=== PATIENT | male | born 1960 | race Caucasian/White ===

== ENCOUNTER 2018-03-16 11:16 | Observation (INO) ==
[2018-03-16 12:18] LABS: Baso # (Auto) 0.1 th/mm3 (0.0-0.2); Baso % (Auto) 1.8 % (0.0-2.0); Eos # (Auto) 0.2 th/mm3 (0.0-0.4); Eos % (Auto) 2.2 % (0.0-4.0); Hematocrit 45.4 % (39.0-51.0); Hemoglobin 15.3 gm/dL (13.0-17.0); Lymph # (Auto) 1.5 th/mm3 (1.0-4.8); Lymph % (Auto) 19.8 % (9.0-44.0); Mean Corpuscular HGB Conc 33.7 % (32.0-36.0); Mean Corpuscular Hemoglobin 28.4 pg (27.0-34.0); Mean Corpuscular Volume 84.3 fL (80.0-100.0); Mean Platelet Volume 10.1 fL (7.0-11.0); Mono # (Auto) 0.5 th/mm3 (0.0-0.9); Mono % (Auto) 6.9 % (0.0-8.0); Neut # (Auto) 5.2 th/mm3 (1.8-7.7); Neut % (Auto) 69.3 % (16.0-70.0); Platelet Count 257 th/mm3 (150-450); Red Blood Count 5.38 mil/mm3 (4.50-5.90); Red Cell Distribution Width 13.7 % (11.6-17.2); White Blood Count 7.4 th/mm3 (4.0-11.0)
--- NOTE | 2018-03-16 12:22 | XR ---
EXAM DATE: 03/16/2018 12:16 PM EDT AGE/SEX: 57 years / Male INDICATIONS: . Chest pain. Patient complains of 2 episodes of dizziness and nausea. CLINICAL DATA: This is the patient's initial encounter. Patient reports that signs and symptoms have been present for 2 days and indicates a pain score of 0/10. MEDICAL/SURGICAL HISTORY: Hypertension. None. COMPARISON: No prior exams available for comparison. FINDINGS: PA and lateral views of the chest demonstrate the lungs to be symmetrically aerated without evidence of mass, infiltrate or effusion. The cardiomediastinal contours are unremarkable. Spurs are seen in t he thoracic spine. CONCLUSION: No acute cardiopulmonary process. Electronically signed by: Josef Vanegas MD 03/16/2018 12:21 PM EDT
[2018-03-16 12:29] LABS: Activated Partial Thrombo Time 25.5 sec (24.3-30.1); Prothrombin Time 10.5 sec (9.8-11.6)
[2018-03-16 12:34] LABS: Calcium 9.7 mg/dL (8.5-10.1); Carbon Dioxide 27.5 meq/L (21.0-32.0); Potassium 4.4 meq/L (3.5-5.1)
[2018-03-16 12:39] LABS: Troponin I 0.03 ng/mL (0.02-0.05)
[2018-03-16] MEDS ORDERED: Aspirin 325 MG Tablet PO ONE (15:48)
--- NOTE | 2018-03-16 16:05 | ED ---
HPI General Chief Complaint: Chest Pain Stated Complaint: Chest Pains Time Seen by Provider: 03/16/18 15:47 Source: patient Mode of arrival: ambulatory History of Present Illness HPI narrative: 57-year-old male presents for 2 day history of chest pain. Chest pain is located in midsternal region and does not radiate. He describes it as a "pressure-like" sensation. He also reports assocaited lightheadness, dizziness and nausea. Denies any fever, chills, SOB, palpitations, fevers, or other symptoms. He states that the chest pains are currently a 3 out of 10. Complete Quality Measures for STEMI Alert Patients Related Data Allergies Allergy/AdvReac Type Severity Reaction Status Date / Time No Known Allergies Allergy Unverified 03/16/18 11:39 Review of Systems ROS: all other systems reviewed are negative [facility] Medical History Medical History Hypertension (Acute) Rheumatoid arthritis (Acute) Surgical History Surgical History H/O knee surgery (Acute) H/O sinus surgery (Acute) Hx of tonsillectomy (Acute) Social History Social History Second Hand Smoke Exposure: No Smoking Status: Never smoker How Often Do You Have a Drink Containing Alcohol: Monthly or less Recent Travel in [facility] within the Last 8 Weeks: No Recent Out of Country Travel within the Last 8 Weeks: No Immunization History Tetanus Immunization: Unsure Hx Influenza Vaccine This Season: No Exam Narrative Exam Narrative: GENERAL: Well-developed middle-age male patient currently in mild distress. Awake and oriented 3. SKIN: Focused skin assessment warm/dry. HEAD: Atraumatic. Normocephalic. EYES: Pupils equal and round. No scleral icterus. No injection or drainage. ENT: No nasal bleeding or discharge. Mucous membranes pink and moist. NECK: Trachea midline. No JVD. Supple. CARDIOVASCULAR: Regular rate and rhythm. No murmur appreciated. Pulses are present and equal bilaterally. RESPIRATORY: No accessory muscle use. Clear to auscultation. Breath sounds equal bilaterally. GASTROINTESTINAL: Abdomen soft, non-tender, nondistended. Hepatic and splenic margins not palpable. MUSCULOSKELETAL: No obvious deformities. No clubbing. No cyanosis. No edema. NEUROLOGICAL: Awake and alert. No obvious cranial nerve deficits. Motor grossly within normal limits. Normal speech. PSYCHIATRIC: Appropriate mood and affect; insight and judgment normal. Course Initial Documented Vital Signs Temperature 98.1 F 03/16/18 11:33 Pulse Rate 68 03/16/18 11:33 Respiratory Rate 18 03/16/18 11:33 Blood Pressure 187/99 H 03/16/18 11:33 Pulse Oximetry 98 03/16/18 11:33 Last Documented Vital Signs Temperature 98.1 F 03/16/18 11:33 Pulse Rate 62 03/16/18 16:23 Respiratory Rate 18 03/16/18 16:23 Blood Pressure 175/84 H 03/16/18 16:23 Pulse Oximetry 96 03/16/18 16:19 Medical Decision Making MDM Narrative Medical decision making narrative: EKG did not show significant dysrhythmias or ST changes. Cardiac enzymes are negative. Chest x-ray is unremarkable. At this point, I am concerned about patient's cardiac status, apparently he has several members of the family with early heart disease at around his age. My plan would be to admit him to chest pain center for further evaluation. Medical Screen Exam Complete: Yes Emergency Medical Condition: Yes Differential Diagnosis Differential Diagnosis: ACS versus dysrhythmias versus anxiety attack versus pneumonia Lab Data Lab results reviewed: Yes I reviewed the patient's lab results. Result diagrams: 03/16/18 11:54 03/16/18 11:54 Lab Results 03/16/18 03/16/18 03/16/18 Range/Units 11:54 11:54 11:54 WBC 7.4 (4.0-11.0) th/mm3 RBC 5.38 (4.50-5.90) mil/mm3 Hgb 15.3 (13.0-17.0) gm/dL Hct 45.4 (39.0-51.0) % MCV 84.3 (80.0-100.0) fL MCH 28.4 (27.0-34.0) pg MCHC 33.7 (32.0-36.0) % RDW 13.7 (11.6-17.2) % Plt Count 257 (150-450) th/mm3 MPV 10.1 (7.0-11.0) fL Neut % (Auto) 69.3 (16.0-70.0) % Lymph % (Auto) 19.8 (9.0-44.0) % [place] % (Auto) 6.9 (0.0-8.0) % Eos % (Auto) 2.2 (0.0-4.0) % Baso % (Auto) 1.8 (0.0-2.0) % Neut # (Auto) 5.2 (1.8-7.7) th/mm3 Lymph # (Auto) 1.5 (1.0-4.8) th/mm3 [place] # (Auto) 0.5 (0.0-0.9) th/mm3 Eos # (Auto) 0.2 (0.0-0.4) th/mm3 Baso # (Auto) 0.1 (0.0-0.2) th/mm3 WBC Differential . Differential Comment Auto diff final PT 10.5 (9.8-11.6) sec INR 1.0 Ratio APTT 25.5 (24.3-30.1) sec Sodium 140 (136-145) meq/L Potassium 4.4 (3.5-5.1) meq/L Chloride 104 (98-107) meq/L Carbon Dioxide 27.5 (21.0-32.0) meq/L Anion Gap 9 (5-15) meq/L BUN 21 H (7-18) mg/dL Creatinine 1.14 (0.60-1.30) mg/dL Estimated GFR 66 L (>89) mL/min Random Glucose 131 H (74-106) mg/dL Calcium 9.7 (8.5-10.1) mg/dL Troponin I 0.03 (0.02-0.05) ng/mL Imaging Data Attestation: I personally reviewed and interpreted this imaging study as follows : Radiologist's impression: Chest X-Ray 03/16/18 11:40 CONCLUSION: No acute cardiopulmonary process. ECG Data Prior ECG tracings: available for review Interpretation: EKG shows normal sinus rhythm at a rate of 70 bpm with no signs of acute ST elevations or depressions. Discharge Plan Discharge Disposition Patient Disposition: 30 Still Patient Discharge Condition Condition: Stable Discharge Details Anticipated Discharge Date: 03/16/18 Diagnosis: Atypical chest pain Physicians Team ED Provider: Bravo Muniz Primary Care Provider: Seth Grigsby Attending Provider: Meagan Rios Discharge Interventions Interventions: Vital Signs Last Done: 03/16/18 16:23 Status ED Status: Admitted Observation Patient
[2018-03-16 19:46] LABS: Troponin I 0.02 ng/mL (0.02-0.05)
--- NOTE | 2018-03-16 19:57 | CT ---
EXAM DATE: 03/16/2018 7:52 PM EDT AGE/SEX: 57 years / Male INDICATIONS: Chest pressure, dizziness and diaphoresis; rule out pulmonary embolus. CLINICAL DATA: This is the patient's initial encounter. Patient reports that signs and symptoms have been present for 1 day and indicates a pain score of 7/10. MEDICAL/SURGICAL HISTORY: Hypertension. None. RADIATION DOSE: 23.18 CTDI (mGy) COMPARISON: No prior exams available for comparison. TECHNIQUE: Volumetric scanning was performed using a multi-row detector CT scanner during bolus infu wilmar of 75 ml Omnipaque 350 (iohexol) nonionic water-soluble contrast as a single exam dose. The malissa a was post processed with a variety of visualization algorithms including full volume maximum intensi ty projection and sliding thin slab reformation. Using automated exposure control and adjustment of t he mA and/or kV according to patient size, radiation dose was kept as low as reasonably achievable to obtain optimal diagnostic quality images. DICOM format image data is available electronically for r eview and comparison. FINDINGS: Pulmonary Arteries: No filling defects are seen in the pulmonary arteries out to the subsegmental ve ssels. The left and right pulmonary arteries are normal in diameter. Lung: No infiltrates seen. Effusion: None. Mediastinum: No evidence of mediastinal or hilar adenopathy. Other: The axilla is unremarkable. CONCLUSION: 1. The study is negative for pulmonary embolism. Electronically signed by: Veto Paredes MD 03/16/2018 7:55 PM EDT
--- NOTE | 2018-03-17 08:38 | P.HPCA ---
History of Present Illness Primary Care Physician: Seth Grigsby DO Chief Complaint: Chest pressure History of Present Illness: 57 year old male with history of RA and hypertension presents to ER for further evaluation pressure, dizziness, and nausea. Onset 11 AM. Location substernal characterizes pressure with associated dizziness and nausea. Denied vomiting, dyspnea, or diaphoresis. Dizziness improved after a few hours reporting chest pressure "never went away." Monday morning woke up feeling fine. While drinking coffee dizziness and nausea returned still noticing sternal chest pressure. Duration dizziness 2 hours. Describes "the world to be spinning." Decided to come the ER for further evaluation as he has a planned trip to [place] this evening. No known coronary artery disease, diabetes, or hyperlipidemia. No recent illness or injury. Continues to have mild chest pressure, dizziness has resolved. Lifelong non-smoker. Reports early onset cardiac disease in mother, "heart problems in her 30s," CABG in her 40s. Past cardiac testing 06/15/14 exercise cardiac testing, Jamie protocol ambulated 9 minutes, no evidence of ischemia. - Diagnosis (1) Atypical chest pain (2) Rheumatoid arthritis (3) Hypertension (4) Dizziness, nonspecific Review of Systems All other systems reviewed negative except as stated in HPI PMFSH - History History Provided By: Patient - Medical History Medical History: Medical History (Last Updated 03/17/18 @ 12:18 by APOLINAR Oscar) Bilateral varicoceles Depression Hypertension Rheumatoid arthritis - Surgical History Surgical History: Surgical History (Last Updated 03/17/18 @ 12:18 by APOLINAR Oscar) H/O knee surgery H/O sinus surgery Hx of tonsillectomy - Tobacco History Second Hand Smoke Exposure: No Smoking Status: Never smoker - Alcohol History How Often Do You Have a Drink Containing Alcohol: Monthly or less - Substance Use History Substance History: No History of Abuse - Travel History History of Recent Travel: No Recent Travel in the [place] Within the Last 8 Weeks: No Recent Travel Out of the Country Within the Last 8 Weeks: No - Immunization History Tetanus Immunization: Unsure Hx Influenza Vaccine This Season: No Medications and Allergies Active Medications: Active Medications Acetaminophen (Tylenol) 500 mg PO Q4H PRN PRN Reason: HEADACHE Nitroglycerin (Nitrostat Sl) 0.4 mg SL Q5M PRN PRN Reason: CHEST PAIN Ondansetron HCl (Zofran Inj) 4 mg IV.PUSH Q6H PRN PRN Reason: NAUSEA Sodium Chloride (Ns Flush) 2 ml IV.FLUSH BID KI Last Admin: 03/16/18 20:55 Dose: 2 ml Sodium Chloride (Ns Flush) 2 ml IV.FLUSH PRN PRN PRN Reason: FLUSH AFTER USING IV ACCESS Allergies Allergy/AdvReac Type Severity Reaction Status Date / Time No Known Allergies Allergy Unverified 03/16/18 11:39 Home Medications Medication Instructions Recorded Confirmed Type Cymbalta 03/16/18 History losartan 03/16/18 History Exam Vital signs: Vital Signs 03/16/18 11:33 03/16/18 16:19 03/16/18 16:23 Temperature 98.1 F Pulse Rate 68 67 62 Respiratory Rate 18 19 18 Blood Pressure 187/99 H 166/98 H 175/84 H Pulse Oximetry 98 96 03/16/18 17:32 03/16/18 20:00 03/17/18 00:00 Temperature 98.2 F 98.4 F Pulse Rate 70 76 70 Respiratory Rate 20 16 16 Blood Pressure 131/76 116/70 117/72 Pulse Oximetry 99 94 L 95 03/17/18 04:00 03/17/18 07:12 03/17/18 08:00 Temperature 98.4 F 97.5 F L Pulse Rate 72 65 70 Respiratory Rate 16 16 Blood Pressure 125/61 125/69 Pulse Oximetry 95 92 L Intake & Output 03/16/18 03/17/18 03/17/18 18:59 06:59 18:59 Weight 99.79 kg 99.79 kg Other: Weight On Admission 99.79 kg Narrative: GENERAL: Alert WN, WD, NAD, pleasant, obese male, easily awakens from sleep HEAD: NC, AT NECK: Supple, no masses, trachea midline CV: RRR, without murmur, rub, gallop, no JVD, S1-S2 no S3-S4. No carotid bruits. Chest wall nontender to palpation. RESP: Clear lungs throughout bilateral, no crackles, wheeze, rhonchi, symmetrical chest rise, nonlabored, able to speak in full sentences ABD: Soft, NT, ND, no masses, positive bowel tones EXT: Pulses +2x4, +1 pitting bilateral dependent lower extremity edema MS: Normal tone x4 extremities, nontender, no obvious deformities, full range of motion NEURO: CN II through CN XII grossly intact, motor strength 5/5 PSYCH: A+O x3, pleasant affect, appropriate speech, mood, insight and judgment SKIN: Normal turgor, normal texture, no lesions, no rashes, brisk cap refill, even hair distribution Results 03/16/18 11:54 03/16/18 11:54 Cardiac Enzymes 03/16/18 03/16/18 03/16/18 Range/Units 11:54 16:00 18:45 Troponin I 0.03 0.03 0.02 (0.02-0.05) ng/mL Coagulation 03/16/18 Range/Units 11:54 PT 10.5 (9.8-11.6) sec APTT 25.5 (24.3-30.1) sec CBC 03/16/18 Range/Units 11:54 WBC 7.4 (4.0-11.0) th/mm3 RBC 5.38 (4.50-5.90) mil/mm3 Hgb 15.3 (13.0-17.0) gm/dL Hct 45.4 (39.0-51.0) % Plt Count 257 (150-450) th/mm3 Neut # (Auto) 5.2 (1.8-7.7) th/mm3 Lymph # (Auto) 1.5 (1.0-4.8) th/mm3 [place] # (Auto) 0.5 (0.0-0.9) th/mm3 Eos # (Auto) 0.2 (0.0-0.4) th/mm3 Baso # (Auto) 0.1 (0.0-0.2) th/mm3 Comprehensive Metabolic Panel 03/16/18 Range/Units 11:54 Sodium 140 (136-145) meq/L Potassium 4.4 (3.5-5.1) meq/L Chloride 104 (98-107) meq/L Carbon Dioxide 27.5 (21.0-32.0) meq/L BUN 21 H (7-18) mg/dL Creatinine 1.14 (0.60-1.30) mg/dL Calcium 9.7 (8.5-10.1) mg/dL Intake and Output 03/16/18 03/17/18 03/17/18 22:59 06:59 14:59 Other: Weight 99.79 kg Weight On Admission 99.79 kg EKG interpretations - EKG EKG results cardiology: sinus rhythm, normal axis, normal QRS, normal ST/T Caprini VTE Risk Assessment Caprini VTE Risk Assessment: No/Low Risk (score <= 1) Caprini Risk Assessment Model: Point Value = 1 Point Value = 2 Point Value = 3 Point Value = 5 Age 41-60 Minor surgery BMI > 25 kg/m2 Swollen legs Varicose veins or History of unexplained or recurrent spontaneous Oral contraceptives or hormone replacement Sepsis (< 1 month) Serious lung disease, including pneumonia (< 1 month) Abnormal pulmonary function Acute myocardial infarction Congestive heart failure (< 1 month) History of inflammatory bowel disease Medical patient at bed rest Age 61-74 Arthroscopic surgery Major open surgery (> 45 min) Laparoscopic surgery (> 45 min) Malignancy Confined to bed (> 72 hours) Immobilizing plaster cast Central venous access Age >= 75 History of VTE Family history of VTE Factor V Leiden Prothrombin 34157H Lupus anticoagulant Anticardiolipin antibodies Elevated serum homocysteine Heparin-induced thrombocytopenia Other congenital or acquired thrombophilia Stroke (< 1 month) Elective arthroplasty Hip, pelvis, or leg fracture Acute spinal cord injury (< 1 month) Prophylaxis Regimen: Total Risk Factor Score Risk Level Prophylaxis Regimen 0-1 Low Early ambulation 2 Moderate Order ONE of the following: *Sequential Compression Device (SCD) *Heparin 5000 units SQ BID 3-4 Higher Order ONE of the following medications: *Heparin 5000 units SQ TID *Enoxaparin/Lovenox 40 mg SQ daily (WT < 150 kg, CrCl > 30 mL/min) *Enoxaparin/Lovenox 30 mg SQ daily (WT < 150 kg, CrCl > 10-29 mL/min) *Enoxaparin/Lovenox 30 mg SQ BID (WT < 150 kg, CrCl > 30 mL/min) AND/OR *Sequential Compression Device (SCD) 5 or more Highest Order ONE of the following medications: *Heparin 5000 units SQ TID (Preferred with Epidurals) *Enoxaparin/Lovenox 40 mg SQ daily (WT < 150 kg, CrCl > 30 mL/min) *Enoxaparin/Lovenox 30 mg SQ daily (WT < 150 kg, CrCl > 10-29 mL/min) *Enoxaparin/Lovenox 30 mg SQ BID (WT < 150 kg, CrCl > 30 mL/min) AND *Sequential Compression Device (SCD) Assessment and Plan - Assessment (1) Atypical chest pain Code(s): R07.89 - Other chest pain Status: Acute Plan: Admitted to chest pain center. ACS ruled out with 3 sets of troponin and EKGs. Will be seen evaluated by Dr. Tashi Thorpe. Discomfort atypical for cardiac etiology, however due to risk factors likely will proceed with exercise stress test later this afternoon. This will be determined after evaluation by metal dealer. Patient agreeable plan of care and verbalizes understanding. (2) Rheumatoid arthritis Code(s): M06.9 - Rheumatoid arthritis, unspecified Status: Chronic Plan: Continue prednisone, follow-up with primary care provider as previously instructed. (3) Hypertension Code(s): I10 - Essential (primary) hypertension Status: Chronic Plan: Continue losartan 50 mg p.o. daily. Consider adding low-dose diuretic. Discussed adapting to a low-sodium diet, continue his weight loss efforts, and increasing his daily activity. (4) Dizziness, nonspecific Code(s): R42 - Dizziness and giddiness Status: Acute Plan: Symptoms have currently resolved. Continue to monitor, likely cause may include vestibular inner ear disturbance. Certainly also required tight blood pressure control as well. H&P: Quality - VTE Deep Vein Thrombosis/Pulmonary Embolism Present on Admission: No (3) Hypertension Qualifiers: Hypertension type: unspecified Qualified Code(s): I10 - Essential (primary) hypertension
[2018-03-17] MEDS: Acetaminophen 500 MG Tablet PO PRN (11:16)
--- NOTE | 2018-03-17 13:51 | P.PNCA ---
Subjective Interval history: Very pleasant 57-year-old gentleman presented by the nurse practitioner subsequently documentation was reviewed laboratory radiographic and electrocardiographic information was also reviewed. The patient was then seen and examined personally. I am in agreement with the documentation with the additional further comments. His episodes of dizziness are clearly vertiginous and almost certainly inner ear and probably not directly related to the more recent episodes of chest pressure. His history of rheumatoid arthritis is further complicated by an additional history of documented psoriatic arthritis. This is resulted in long-term treatment with high doses of prednisone. He is currently weaned his prednisone down to 10-1/2 a day but has clearly been on prednisone long enough to have secondary effects. Additionally added to his evaluation is the fact that he is employed and travels internationally. He was supposed to fly to [place] night. Obviously further definitive evaluation would be warranted prior to international travel. Physical Exam Vital signs: Vital Signs 03/16/18 16:19 03/16/18 16:23 03/16/18 17:32 Temperature Pulse Rate 67 62 70 Respiratory Rate 19 18 20 Blood Pressure 166/98 H 175/84 H 131/76 Pulse Oximetry 96 99 03/16/18 20:00 03/17/18 00:00 03/17/18 04:00 Temperature 98.2 F 98.4 F 98.4 F Pulse Rate 76 70 72 Respiratory Rate 16 16 16 Blood Pressure 116/70 117/72 125/61 Pulse Oximetry 94 L 95 95 03/17/18 07:12 03/17/18 08:00 03/17/18 12:00 Temperature 97.5 F L 97.6 F Pulse Rate 65 70 71 Respiratory Rate 16 16 Blood Pressure 125/69 154/86 H Pulse Oximetry 92 L 98 Intake & Output 03/16/18 03/17/18 03/17/18 18:59 06:59 18:59 Weight 99.79 kg 99.79 kg Other: Date of Last Bowel Movement 03/16/18 Weight On Admission 99.79 kg Narrative: Well-nourished well-developed 57-year-old gentleman sitting comfortably in bed Skin warm and dry Head normocephalic atraumatic Eyes PERRLA EOMI sclera clear Mouth mucous membranes moist and well papillated no lesions neck supple no JVD masses nodes or bruits Chest clear to auscultation slightly diminished breath sounds at the bases but no rales wheezes or rhonchi Cardiovascular PMI is not displaced there is a regular sinus rhythm no gallops rubs or murmurs Abdomen soft nontender no guarding or rebound no hepatosplenomegaly is noted Extremities no clubbing cyanosis or edema pulses are intact Assessment and Plan - Assessment (1) Atypical chest pain Code(s): R07.89 - Other chest pain Status: Acute Plan: Admitted to chest pain center. ACS ruled out with 3 sets of troponin and EKGs. Will be seen evaluated by Dr. Tashi Thorpe. Discomfort atypical for cardiac etiology, however due to risk factors likely will proceed with exercise stress test later this afternoon. This will be determined after evaluation by fish egg packer. Patient agreeable plan of care and verbalizes understanding. Patient is ruled out using standard protocol and will be further evaluated with an exercise stress test. (2) Rheumatoid arthritis Code(s): M06.9 - Rheumatoid arthritis, unspecified Status: Chronic Plan: Continue prednisone, follow-up with primary care provider as previously instructed. Spent some time discussing his complex arthritis and strongly recommend that he either return to [place] or seek additional information from [facility] immunology rheumatology due to his early age and difficulty with control (3) Hypertension Code(s): I10 - Essential (primary) hypertension Status: Chronic Plan: Continue losartan 50 mg p.o. daily. Consider adding low-dose diuretic. Discussed adapting to a low-sodium diet, continue his weight loss efforts, and increasing his daily activity. (4) Dizziness, nonspecific Code(s): R42 - Dizziness and giddiness Status: Acute Plan: Symptoms have currently resolved. Continue to monitor, likely cause may include vestibular inner ear disturbance. Certainly also required tight blood pressure control as well. (3) Hypertension Qualifiers: Hypertension type: unspecified Qualified Code(s): I10 - Essential (primary) hypertension
--- NOTE | 2018-03-17 15:47 | ECG ---
Date Performed: 03/17/2018 Time Performed: 09:37:12 PTAGE: 57 years EKG: Sinus rhythm MODERATE VOLTAGE CRITERIA FOR LVH, CONSIDER NORMAL VARIANT BORDERLINE ECG No significant change NO PREVIOUS TRACING DOCTOR: Tashi Thorpe Interpretating Date/Time 03/17/2018 15:46:04
--- NOTE | 2018-03-17 15:55 | TR ---
Date Performed: 03/17/2018 Time Performed: 13:19:20 DOCTOR: Tashi Thorpe DRUG LIST: CLINICAL HISTORY: CHEST PAIN REASON FOR TEST: Chest pain REASON FOR ENDING: OBSERVATION: CONCLUSION: Jamie protocol completed. Stopped sec to increasing chest tightness and questionable st depression leads V5, V6. Maximum GE=294 Max HR Achieved=82.0% Maximum OU=291/82 Total Exercise T lizette=7:43. Baseline leads III and AVF t wave inversions. Mild st depression stage 3 leads V5-V6. Good exercise tolerance. Normal bp response. Recovery chest tightness quickly resolved. No wheezing. Horiz iontal st segments resolved during recovery. COMMENTS: Patient has greater than [address] depression in the inferior lateral leads consist ent with positive study suggesting ischemia.
--- NOTE | 2018-03-17 17:20 | ECG ---
Date Performed: 03/16/2018 Time Performed: 11:46:57 PTAGE: 57 years EKG: Sinus rhythm MODERATE VOLTAGE CRITERIA FOR LVH, CONSIDER NORMAL VARIANT BORDERLINE ECG NO PREVIOUS TRACING DOCTOR: Rip Jacobo Interpretating Date/Time 03/17/2018 17:18:11
--- NOTE | 2018-03-17 17:49 | MB ---
cc: Crow Gold MD DATE: 03/17/2018 REASON FOR CONSULTATION: Atypical chest pain with abnormal nuclear stress test. HISTORY OF PRESENT ILLNESS: The patient is a 57-year-old gentleman with no prior cardiac history but family history of coronary artery disease, who over the last few days has been having chest discomfort with vague dizziness and nausea. He presented to the emergency department and was ruled out for CO and had an exercise stress test, which apparently was abnormal with inferior ST depressions, although the EMR crashes every time I tried to pull it up myself. Dr. Thorpe met be at bedside and described the EKG treadmill findings. The patient still has some degree of chest pressure but looks quite comfortable. He has no shortness of breath, lightheadedness, dizziness currently. PAST MEDICAL HISTORY: Hypertension. FAMILY HISTORY: Positive for coronary artery disease. CURRENT MEDICATIONS: 1. Cozaar 50 mg daily. 2. Lopressor 25 mg b.i.d. 3. Nitro paste. ALLERGIES: NO KNOWN DRUG ALLERGIES. PHYSICAL EXAMINATION: VITAL SIGNS: Afebrile, pulse 71, respiratory rate 16, BP 154/86, saturating 98 on room air. GENERAL: Pleasant gentleman in no distress. NECK: No JVD. LUNGS: Clear to auscultation bilaterally. CARDIOVASCULAR: Regular rate and rhythm. No murmurs appreciated. ABDOMEN: Benign. EXTREMITIES: No edema. LABORATORY DATA: Notable for normal cardiac enzymes. Sodium 140, potassium 4.4, chloride 104, bicarbonate 27.5, BUN 21, creatinine 1.14, glucose 66. White count 7.4, hematocrit 45.4, platelets 257. EKG shows sinus rhythm with no acute ST or T-wave changes. Exercise treadmill stress test according to Dr. Thorpe was abnormal inferiorly concerning for ischemia. CTA of the chest was negative for pulmonary embolism. Chest x-ray was negative. IMPRESSION: Chest discomfort. The patient has ongoing chest pressure with an abnormal exercise treadmill test. PLAN: I discussed all the options including further noninvasive studies such as a nuclear stress test, but the patient with ongoing symptoms likely would benefit from cardiac catheterization and the patient wishes to have this done regardless. I will ask my partner, Dr. Lorenzo, to have the study was performed on Monday. The patient will be kept n.p.o. past midnight Monday night unless the patient's clinical condition changes in which case a more urgent study could be performed. Thank you for the opportunity to participate in this patient's care. MD BRENNON Quintero/roger , 03:27 PM , 03:34 PM
[2018-03-17] MEDS: Metoprolol Tartrate 25 MG Tablet PO SCH (20:46)
[2018-03-18] MEDS: Acetaminophen 500 MG Tablet PO PRN (06:16)
[2018-03-18] MEDS: Metoprolol Tartrate 25 MG Tablet PO SCH ×2 (08:21→21:04)
--- NOTE | 2018-03-18 09:59 | P.PN ---
Subjective Interval history: Follow-up for chest pain, abnormal walking treadmill stress test. Patient reports overall much improved. He denies any chest pain overnight, but reports an occasional few second episodes of dyspnea. Denies any current shortness of breath. Denies any nausea or diaphoresis. He has never had a cardiac catheterization. Denies any cardiac history. Denies any other medical complaints including no lightheadedness, dizziness, palpitations, abdominal or urinary complaints. Physical Exam Vital signs: Vital Signs 03/17/18 12:00 03/17/18 16:00 03/17/18 20:00 Temperature 97.6 F 98.6 F Pulse Rate 71 80 85 Respiratory Rate 16 16 18 Blood Pressure 154/86 H 162/92 H 142/86 H Pulse Oximetry 98 96 97 03/18/18 00:00 03/18/18 04:00 03/18/18 07:23 Temperature 98.2 F 97.9 F 97.9 F Pulse Rate 77 68 61 Respiratory Rate 18 20 18 Blood Pressure 147/73 H 137/81 142/83 H Pulse Oximetry 96 98 96 03/18/18 08:00 Temperature Pulse Rate 62 Respiratory Rate Blood Pressure Pulse Oximetry Intake & Output 03/17/18 03/18/18 03/18/18 18:59 06:59 18:59 Other: Date of Last Bowel Movement 03/16/18 03/17/18 Narrative: GENERAL: Well-nourished, well-developed middle-aged male patient in [facility]. SKIN: Warm and dry. No rash. HEENT: Normocephalic. Atraumatic. Mucous membranes pink and moist. NECK: Supple. Trachea midline. CARDIOVASCULAR: Regular rate and rhythm. No murmur appreciated. RESPIRATORY: No accessory muscle use. Clear to auscultation. Breath sounds equal bilaterally. GASTROINTESTINAL: Abdomen soft, non-tender, nondistended. Normoactive bowel sounds x4. MUSCULOSKELETAL: No obvious deformities. Extremities without clubbing, cyanosis , or edema. NEUROLOGICAL: Awake and alert. No obvious cranial nerve deficits. Motor grossly within normal limits. Moving all extremities spontaneously. Normal speech. PSYCHIATRIC: Appropriate mood and affect; insight and judgment normal. Results - Labs CBC & Chem 7: 03/16/18 11:54 03/16/18 11:54 - Imaging Chest X-Ray 03/16/18 11:40 CONCLUSION: No acute cardiopulmonary process. Chest CTA 03/16/18 16:47 CONCLUSION: 1. The study is negative for pulmonary embolism. Assessment and Plan - Plan 57-year-old male with history of hypertension, rheumatoid arthritis, depression , presents with multiple episodes of chest pain Chest pain: Initially admitted to the chest pain center, ACS ruled out with negative serial cardiac enzymes, however walking treadmill stress test abnormal , therefore admitted to hospitalists. -Continue aspirin, BB, ARB, Nitro ointment, O2 prn, IV morphine prn -Monitor on telemetry -Cardiology consulted, planning for cardiac catheterization on Monday 03/19 Hypertension: chronic -continue patient's losartan -Monitor BP, adjust antihypertensives as needed Rheumatoid Arthritis: chronic -continue patient's low dose prednisone 2.5mg daily -outpatient f/up DVT Prophylaxis: heparin sq Discharge Planning: Plan for cardiac catheterization on Monday 03/19.
[2018-03-18] MEDS ORDERED: fentaNYL Citrate Inj 100 MCG/2 ML Ampul IV.PUSH SCH ×2 (10:30→10:45)
[2018-03-18] MEDS ORDERED: predniSONE 1 MG Tablet PO SCH (10:30)
--- NOTE | 2018-03-18 10:47 | P.PN ---
Subjective Interval history: Pt doing well, same continuous vague chest tightness Physical Exam Vital signs: Vital Signs 03/17/18 12:00 03/17/18 16:00 03/17/18 20:00 Temperature 97.6 F 98.6 F Pulse Rate 71 80 85 Respiratory Rate 16 16 18 Blood Pressure 154/86 H 162/92 H 142/86 H Pulse Oximetry 98 96 97 03/18/18 00:00 03/18/18 04:00 03/18/18 07:23 Temperature 98.2 F 97.9 F 97.9 F Pulse Rate 77 68 61 Respiratory Rate 18 20 18 Blood Pressure 147/73 H 137/81 142/83 H Pulse Oximetry 96 98 96 03/18/18 08:00 Temperature Pulse Rate 62 Respiratory Rate Blood Pressure Pulse Oximetry Intake & Output 03/17/18 03/18/18 03/18/18 18:59 06:59 18:59 Other: Date of Last Bowel Movement 03/16/18 03/17/18 - Constitutional no acute distress - Routine HEENT Exam Head: Present: normocephalic Eye: Present: EOMI ENT: Present: mucous membranes moist - Routine Neck Exam Absent: JVD - Routine Respiratory Exam Present: CTA bilaterally - Routine Extremities Exam Absent: edema Results - Labs CBC & Chem 7: 03/16/18 11:54 03/16/18 11:54 Assessment and Plan - Assessment (1) Atypical chest pain Code(s): R07.89 - Other chest pain Status: Acute Plan: w/ abnl ETT, ongoing pain, will plan for cardiac cath tomorrow (by dr tilley) ok for prednisone, pt requests due to his inflammatory arthritis
[2018-03-18] MEDS: predniSONE 5 MG Tablet PO SCH (11:11)
[2018-03-18] MEDS ORDERED: Morphine Inj 4 MG/ML Vial IV.PUSH PRN (11:14)
--- NOTE | 2018-03-18 17:07 | MB ---
cc: Preston Sheth MD DATE: 03/18/2018 REASON FOR CONSULTATION: Cardiac catheterization. HISTORY OF PRESENT ILLNESS: The patient is a 57-year-old white male with a history of rheumatoid arthritis and hypertension, who was in his usual state of health up until 4 days ago when he began to experience left parasternal chest discomfort described as "pressure" possibly associated with increased shortness of breath without diaphoresis. Sometimes the chest discomfort would be associated with mild nausea. The patient became especially concerned when he began to experience fairly severe lightheadedness in the 24 hours prior to presentation. The lightheadedness would last up to an hour. He denies losing consciousness. The chest discomfort has been constant for the past 3-1/2 days with no definite exacerbating or alleviating factors. He denies pleurisy, pedal edema, paroxysmal nocturnal dyspnea, palpitations, fevers, wheezing, or cough. A stress test was obtained and electrocardiographically positive for ischemia. PAST MEDICAL HISTORY: 1. Hypertension. 2. Rheumatoid arthritis. CARDIAC MEDICATION AT HOME: Losartan. ALLERGIES: NO KNOWN DRUG ALLERGIES. FAMILY HISTORY: The patient's mother has a long history of cardiac disease, apparently initially sustaining a myocardial infarction in her 30s or 40s. SOCIAL HISTORY: The patient denies any history of alcohol or tobacco abuse. REVIEW OF SYSTEMS: As in the history of present illness, otherwise negative or noncontributory. He also denies melena, dyspepsia, bright red blood per rectum. He has had a mild headache here in the hospital from nitroglycerin. PHYSICAL EXAMINATION: VITAL SIGNS: His blood pressure 142/83 with pulse of 62, respirations 18. GENERAL: He is a well-developed, well-nourished white male in no acute distress. NECK: Jugular venous pressure is normal. Carotid pulses are 2+ bilaterally without bruits. CHEST: Reveals clear lung bello. CARDIAC: He has a regular rhythm and rate without S3, S4, or murmur. ABDOMEN: He has a soft, nontender abdomen. Bowel sounds are present. There is no definite hepatosplenomegaly. EXTREMITIES: Reveals no clubbing, cyanosis, or edema. Peripheral pulses are normal throughout. DIAGNOSTIC DATA: EKG shows normal sinus rhythm, minimal voltage criteria for LVH. LABORATORY DATA: Includes normal CBC - BUN 21, creatinine 1.14, potassium 4.4. Negative cardiac enzymes. IMPRESSION: Somewhat atypical symptoms for myocardial ischemia or infarction, although with an abnormal exercise treadmill test in this 57-year-old white male with a history of hypertension, rheumatoid arthritis, family history of early myocardial infarction. At this point, I would agree with the need for cardiac catheterization. The patient also strongly desires most definitive evaluation of his coronary anatomy, especially with his strong family history of cardiac disease. The nature of a cardiac catheterization and percutaneous coronary intervention have been outlined to the patient. The risks have also been outlined including, but not limited to , myocardial infarction, stroke, arrhythmia, bleeding, infection, and renal failure. He agrees to proceed. RECOMMENDATIONS: Cardiac catheterization tomorrow morning. MD JOI Browne/nallely , 10:34 AM , 10:42 AM VERENICE
[2018-03-18] MEDS: Heparin - SQ 10,000 UNITS/ML Vial SQ SCH (21:04)
[2018-03-19] MEDS: Acetaminophen 500 MG Tablet PO PRN ×2 (08:32→16:24)
[2018-03-19] MEDS: Sod Chloride 0.9% Inj 1,000 ML IV.CONT SCH (08:32)
[2018-03-19] MEDS: Metoprolol Tartrate 25 MG Tablet PO SCH ×2 (08:33→21:56)
[2018-03-19] MEDS: predniSONE 5 MG Tablet PO SCH (08:33)
[2018-03-19] MEDS: Heparin - SQ 10,000 UNITS/ML Vial SQ SCH ×2 (08:34→22:02)
--- NOTE | 2018-03-19 09:03 | P.PN ---
Subjective Interval history: Follow-up for chest pain, abdominal treadmill test. Patient reports continued mild chest discomfort/pressure overnight. He is reporting a mild headache with the Nitropaste. Denies any shortness of breath, palpitations, or abdominal complaints. Going for heart cath today. Has no other medical complaints at this time. Physical Exam Vital signs: Vital Signs 03/18/18 11:31 03/18/18 15:36 03/18/18 20:00 Temperature 97.7 F 98.3 F Pulse Rate 63 73 Respiratory Rate 18 18 16 Blood Pressure 137/73 134/71 Pulse Oximetry 95 94 L 03/19/18 00:00 03/19/18 04:00 03/19/18 07:49 Temperature 98.5 F 98.0 F 97.3 F L Pulse Rate 68 63 68 Respiratory Rate 20 20 16 Blood Pressure 143/87 H 159/84 H 147/77 H Pulse Oximetry 97 98 94 L Intake & Output 03/18/18 03/19/18 03/19/18 18:59 06:59 18:59 Intake Total 1080 / 1080 480 / 480 Output Total 400 / 400 Balance 1080 / 1080 80 / 80 Intake: Oral 1080 / 1080 480 / 480 Output: Urine 400 / 400 Other: # Voids 6 Date of Last Bowel Movement 03/17/18 # Bowel Movements 0 Narrative: GENERAL: Well-nourished, well-developed middle-aged male patient in [facility]. SKIN: Warm and dry. No rash. HEENT: Normocephalic. Atraumatic. Mucous membranes pink and moist. NECK: Supple. Trachea midline. CARDIOVASCULAR: Regular rate and rhythm. No murmur appreciated. RESPIRATORY: No accessory muscle use. Clear to auscultation. Breath sounds equal bilaterally. GASTROINTESTINAL: Abdomen soft, non-tender, nondistended. Normoactive bowel sounds x4. MUSCULOSKELETAL: No obvious deformities. Extremities without clubbing, cyanosis , or edema. NEUROLOGICAL: Awake and alert. No obvious cranial nerve deficits. Motor grossly within normal limits. Moving all extremities spontaneously. Normal speech. PSYCHIATRIC: Appropriate mood and affect; insight and judgment normal. Results - Labs CBC & Chem 7: 03/16/18 11:54 03/16/18 11:54 - Imaging Chest X-Ray 03/16/18 11:40 CONCLUSION: No acute cardiopulmonary process. Chest CTA 03/16/18 16:47 CONCLUSION: 1. The study is negative for pulmonary embolism. Assessment and Plan - Plan 57-year-old male with history of hypertension, rheumatoid arthritis, depression , presents with multiple episodes of chest pain Chest pain: Initially admitted to the chest pain center, ACS ruled out with negative serial cardiac enzymes, however walking treadmill stress test abnormal , therefore admitted to hospitalists. -Continue aspirin, BB, ARB, Nitro ointment, O2 prn, IV morphine prn -Monitor on telemetry -Cardiology consulted, planning for cardiac catheterization today 03/19 Hypertension: chronic -continue patient's losartan -Monitor BP, adjust antihypertensives as needed Rheumatoid Arthritis: chronic -continue patient's low dose prednisone 2.5mg daily -outpatient f/up Headache: Acute, secondary to nitro -Tylenol as needed, patient states he can tolerate the nitro for now DVT Prophylaxis: heparin sq Discharge Planning: Plan for cardiac catheterization today 03/19, further disposition to follow. Will d/c when cleared by cardiology.
[2018-03-19] MEDS ORDERED: Heparin/NS PF Inj 1,000 ML ONE (15:18)
[2018-03-19] MEDS ORDERED: fentaNYL Citrate Inj 100 MCG/2 ML Ampul ONE (15:18)
[2018-03-19] MEDS ORDERED: Heparin 10,000 UNITS/10 ML Vial (for IV use) ONE (15:18)
[2018-03-19] MEDS ORDERED: Iohexol 350 MG/ML 100 ML Vial (for Cath Lab) IVCONTRAST ONE (16:00)
--- NOTE | 2018-03-19 16:14 | CATHPROC ---
[employer] HIS Report Study Information Study Number Admission Scheduled Start Study Start [id number] Mar 16 2018 3:59PM 03/19/2018 Mar 19 2018 3:10PM [place] Service Electrophysiology Study Admit Source Facility Department Emergency department [facility] - X Ray Inspector Physician and Clinical Staff Initial Preston Khanna Can Conveyor Feeder Paulina Sheffield,AURELIANO Can Conveyor Feeder Calvin Page,RN Recorder Mumtaz Beckwith,RT(R) Scrub Mili Mar,RT(R) Procedures Performed Procedure Location (Site) Vessel Name Coronary Angiograms LCA Left Coronary Coronary Angiograms RCA Right Coronary L Heart Cath LV Gram-hand inj. LV LV Ventricle Wire insertion Radial (right) Radial Art. Equipment Time Ocean Fishing Guide Description Size Mfg Part Number Used/Scraped TRANSDUCER, TRUWAVE [id number] 15:18 CAMACHO CAMACHO * Used W/STOCKCOCK *[id number] *[id number] *[id number] *[id number] 15:18 MALLINCKRODT SYRINGE, ANGIOMAT 150ML 150ML *[id number] Used 2S [employer]able CONCEPT DRAPE, RADIAL FEMORAL FULL 15:18 * [id number] *[id number] Used DEVELOPMENT BODY [id number] 15:18 [employer] BLANKET,WARM AIR CCL * Used *[id number] 15:18 [employer] PACK, CCL CUSTOM * Used *[id number] 15:18 [employer] SUPPORT, ARTERIAL ADULT [id number] *[id number] Used [id number] 15:18 [employer] PACER PEN, SKIN DUAL W/ RULER * Used *[id number] 15:47 [employer] 30 EDISON INDEFLATOR Used *[id number] BAND, RADIAL COMPRESSION TR [id number] 16:07 [employer] 24CM Used SHORT 24 *[id number] SHEATH, FR6 RADIAL PRELUDE 15:18 [employer] FR 6 [id number] Used EASE 11CM [id number] 15:18 [employer] WIRE, EXCHANGE 260CM 3MMJ 260CM Used *[id number] 15:18 NAMIC MANIFOLD, 4 PORT * Used *[id number] 15:18 NYCOMED OMNIPAQUE, 350 MG, 150ML 150ML [id number] Used CATHETER, FR5 OPTITORQUE [id number] 15:14 TERBiOxyDyn MEDICAL FR 5 Used RADIAL TIG 4.0 *[id number] SHEATH, FR6 TRANSRADIAL [id number] 15:44 TERUMO MEDICAL FR 6 Used SLENDER 10CM *[id number] 15:45 VOLCANO PRIME WIRE, VERRATA 185CM 185CM Used *[id number] Equipment Model, Serial, Lot Number and Expiration Data Description Model Number Serial Number Lot Number Expiration Date PRIME WIRE, VERRATA 185CM [id number] 11-20-2020 History: Current Medications Medication Dosage/Unit Route Frequency Last Date/Time Taken ASA LOPRESSOR NTG Patch History: Allergies Allergy Reaction No Known Allergies History: Risk Factors Family History of Hypertension Dyslipidemia Previous TN Previous Heart Failure Premature CAD Yes No Yes No No Prior Valve Prior PCI Prior CABG Surgery No No No Cerebrovascular Peripheral Artery Chronic Lung On Dialysis Diabetes Disease Disease Disease No No No Yes No History: Symptoms/Diagnosis Selection Items Chest pain Syncope History: Stress Tests Stress or Imaging Studies Performed Yes Standard Exercise Stress Stress Test Result Stress Test Ischemia Risk/Extent Test Yes Positive Intermediate Stress Echo No Stress Test SPECT No Stress Test CMR No Cardiac CTA Coronary Calcium Score No No History: Other Disease Selection Items HTN History: Other Current Smoker No Labs Hgb (g/dl) Hct (%) WBC (l/cumm) Platelets (thousands) 11.60-17.00 35.00-51.00 4.00-11.00 150.00-450.00 15.3 45.5 7.4 257 Glucose (mg/dl) BUN (mg/dl) Creatinine (mg/dl) BUN:Creatinine (1:x) 74.00-106.00 7.00-18.00 0.50-1.30 10.00-20.00 131 21 1.1 19.1 Na (meq/l) K (meq/l) 136.00-145.00 3.50-5.10 140 4.4 INR (PTT:PT) 0.90-1.10 1 Troponin I (ng/ml) CPK-MB (ng/ML) 0.02-0.05 0.50-3.60 0.02 Not Drawn Medication Medication Total Dose (Bolus/Oral) Medication Total Dosage/Unit 1% XYLOCAINE 5 mL FENTANYL 50 mcg HEPARIN 7000 units RADIAL COCKTAIL 5 mL (Bolus) VERSED 2 mg Medications (Bolus/Oral) Medication Time Given Dosage/Unit Administered By Reason 1% XYLOCAINE 03/19/2018 3:31:39 PM 5 mL Preston Sheth Patient arrived on 5 mL 1% XYLOCAINE given by Preston Sheth in Right Radial via Subcutaneous. VERSED 03/19/2018 3:32:37 PM 2 mg Preston Sheth Patient arrived on 2 mg VERSED given by Preston Sheth in Left Antecubital via Peripheral IV. FENTANYL 03/19/2018 3:32:39 PM 50 mcg Preston Sheth Patient arrived on 50 mcg FENTANYL given by Preston Sheth in Left Antecubital via Peripheral IV. Ntg 200mcg Verapamil 2.5mg Heparin RADIAL COCKTAIL 03/19/2018 3:34:19 PM 5 mL (Bolus) Preston Sheth 2500U Patient arrived on 5 mL (Bolus) RADIAL COCKTAIL given by Preston Sheth via Radial. Using [Solution Nam e]. Reason: Ntg 200mcg Heparin 2500U. HEPARIN 03/19/2018 3:46:04 PM 7000 units Calvin Page Patient arrived on 7000 units HEPARIN given by Calvin Page RN in Left Antecubital via Peripheral IV . Medication (Drip) Medication Time Given Dosage/Unit Concentration/Unit Diluent (ml) Solution IV Solutions 03/19/2018 3:13:07 PM 0 mL (IV) 1000 NaCl .9 Patient arrived on IV Solutions in Left Antecubital via Peripheral IV. Pump/Drip Flow = 20 ml/hr usin g NaCl .9. Initial Case Assessment Cardiovascular HR Rhythm NIBP Chest Pain 60 Sinus 131/81 0 Edema Present Skin color Skin None Normal Warm Dry Circulatory - Right Pulses Dorsalis Pedis Femoral Radial 2 2 2 Scale (0,1,2,3,4,d) Scale (0,1,2,3,4,d) Neurological State Oriented to time-place- Alert Moves all extremities person Respiration - General Respiration Rate SpO2 (%) O2 (lpm) (B/min) 15 96 0 Final Case Assessment Cardiovascular HR Rhythm NIBP Chest Pain 62 Sinus 149/76 0 Edema Present Skin color Skin None Normal Warm Dry Circulatory - Right Pulses Dorsalis Pedis Femoral Radial 2 2 2 Scale (0,1,2,3,4,d) Scale (0,1,2,3,4,d) Neurological State Oriented to time-place- Alert Moves all extremities person Respiration - General Respiration Rate SpO2 (%) O2 (lpm) (B/min) 13 95 0 Chronological Log Time Study Chronological Log 15:09:54 Patient arrived via Bed. 15:11:31 Patient Name, D.O.B, / Armband Verified By R.N. 15:11:32 Consent signed by the physician and the patient and verified by the X Ray Inspector staff. 15:11:33 Pre-op and post- op instructions given; patient acknowledges understanding of instructions. 15:11:33 Verbal Stimulation=2 Physical Stimulation=2 Airway=2 Respiration=2 TOTAL=8. (0=absent, 1=li mited, 2=present) 15:11:35 Presedation assessment performed by X Ray Inspector RN. 15:11:36 Allens test performed on the right radial and ulnar artery. 15:12:37 Patient has been NPO for More than 6Hrs. 15:12:38 Skin Breakdown- none per patient. 15:13:03 Patient Warmer Placed on the Table. 15:13:05 Epifanio Prominences Protected 15:13:06 A # 20 IV was noted in the Antecubital (left). Grade = 0 15:13:07 Patient arrived on IV Solutions in Left Antecubital via Peripheral IV. Pump/Drip Flow = 20 ml/hr using NaCl .9. 15:13:08 History and physical on the chart or being dictated. Assessment: Initial Case, HR=60 BPM, Rhythm=Sinus, HXHE=645/81 mmhg, Chest Pain=0, Edema=None, Color=Normal, Skin = Warm, Dry 15:13:09 Right Pulses: Jesus Ped=2, Femoral=2, Radial=2 Neurological: State=Alert, Ox3, ALVARADO Respiration: Resp=15 B/min, SpO2=96 %, O2=0 lpm Vitals capture started with the following parameters, Patient=Adult, Interval=5 min, Initial Pr yhgwvh=824 mmHg, 15:13:11 Deflation Rate=5 mmHg, Cuff placed on Right Arm 15:13:52 HR=65 bpm, JGBH=815/88 mmhg, SpO2=97.0 %, Resp=15 B/min, Pain=0, Bob=10, Lau=2 15:18:53 HR=62 bpm, RCNU=396/81 mmhg, SpO2=96.0 %, Pain=0, Bob=10, Lau=2 15:19:22 Reference ECG taken 15:23:50 HR=61 bpm, POLM=979/78 mmhg, SpO2=98.0 %, Pain=0, Bob=10, Lau=2 15:28:20 Right Radial and groin(s) prepped with 2% chlorhexidine, and draped after a 3 min. waiting time. 15:28:32 MD arrived. 15:28:51 HR=64 bpm, OHZX=905/80 mmhg, SpO2=97.0 %, Pain=0, Bob=10, Lau=2 15:30:10 Pressure channel 1 zeroed. Time Out. Correct patient, correct procedure, correct physician, labs, allergies, and equipment verified with qc lab technician 15::19 team present. Fire risk assesment completed (see hard stop sheet for coding). Time Out Conc urred by MD and individual staff in procedure. 15:31:39 Patient arrived on 5 mL 1% XYLOCAINE given by Preston Sheth in Right Radial via Subcutaneous . 15:31:51 Case Start 15:32:37 Patient arrived on 2 mg VERSED given by Preston Sheth in Left Antecubital via Peripheral IV. 15:32:39 Patient arrived on 50 mcg FENTANYL given by Preston Sheth in Left Antecubital via Peripheral IV. 15:33:45 Access site was Right Radial Artery . 15:33:52 HR=66 bpm, KLHB=602/78 mmhg, SpO2=97.0 %, Pain=0, Bob=10, Lau=2 A SHEATH, FR6 RADIAL PRELUDE EASE 11CM FR 6 was advanced into the Radial (right) using the Perc utaneous 15:33:53 technique. Patient arrived on 5 mL (Bolus) RADIAL COCKTAIL given by Preston Sheth via Radial. Using [Soluti on Name]. Reason: 15:34:19 Ntg 200mcg Heparin 2500U. 15:34:54 A CATHETER, FR5 OPTITORQUE RADIAL TIG 4.0 FR 5 was advanced over a wire. contrast was used for injections. Recorded Pressure: Ao, HR=76, Condition=Condition 1 15:36:53 (Aorta) Ao 117/71/91 15:37:09 The LCA was injected and visualized at various angles. OMNIPAQUE, 350 MG, 150ML 150ML used . 15:38:55 HR=73 bpm, PJLV=332/58 mmhg, SpO2=89.0 %, Pain=0, Bob=10, Lau=2 After removing the current catheter a JR 5.0 INFINITI CATHETER FR 6 was advanced over a WIRE, E XCHANGE 260CM 15:42:35 3MMJ 260CM. 15:43:50 HR=76 bpm, SCAD=785/72 mmhg, SpO2=92.0 %, Pain=0, Bob=10, Lau=2 15:44:38 The RCA was injected and visualized at various angles. OMNIPAQUE, 350 MG, 150ML 150ML used . 15:45:06 Catheter was removed A SHEATH, FR6 TRANSRADIAL SLENDER 10CM FR 6 was exchanged in the Radial (right). This was neces niko in order 15:45:09 to accomodate a larger catheter. 15:46:04 Patient arrived on 7000 units HEPARIN given by Calvin Page RN in Left Antecubital via Per ipheral IV. A XB 3.5 GUIDE CATHETER FR 6 was advanced over a wire. OMNIPAQUE, 350 MG, 150ML 150ML was used for 15:48:42 injections. 15:48:49 HR=75 bpm, NELU=659/73 mmhg, SpO2=92.0 %, Pain=0, Bob=10, Lau=2 15:52:02 Wire removed 15:53:50 HR=68 bpm, TVXP=967/74 mmhg, SpO2=96.0 %, Pain=0, Bob=10, Lau=2 15:54:53 A PRIME WIRE, VERRATA 185CM 185CM was inserted via Radial (right). 15:55:03 Interventional wire has crossed the lesion 15:56:27 Flow Wire was was placed in the CIRC Mid. The FFR measures ~FFR~ percent. The IFR measures 99 Percent. 15:57:34 Wire removed After removing the current catheter a MPA-2 INFINITI CATHETER FR 6 was advanced over a WIRE, EX CHANGE 260CM 15:58:03 3MMJ 260CM. 15:58:52 HR=68 bpm, CIAV=632/74 mmhg, SpO2=94.0 %, Pain=0, Bob=10, Lau=2 Recorded Pressure: LV, HR=63, Condition=Condition 1 16:00:40 (Left Ventricle) LV 123/6/16 16:00:54 The LV was manually injected with 8 cc's and visualized. OMNIPAQUE, 350 MG, 150ML 150ML use d. Recorded Pressure: LV, Ao, HR=67, Condition=Condition 1 16:00:59 (Left Ventricle) LV 124/-12/23, (Aorta) Ao 143/58/98 16:01:11 Catheter was removed 16:01:31 Case End (Physician broke scrub) Assessment: Final Case, HR=62 BPM, Rhythm=Sinus, DTAP=004/76 mmhg, Chest Pain=0, Edema=None, Color=Normal, Skin = Warm, Dry 16:03:21 Right Pulses: Jesus Ped=2, Femoral=2, Radial=2 Neurological: State=Alert, Ox3, ALVARADO Respiration: Resp=13 B/min, SpO2=95 %, O2=0 lpm 16:04:36 HR=66 bpm, HLQT=431/74 mmhg, SpO2=97.0 %, Pain=0, Bob=10, Lau=2 Radial Compression Device Used. 13 mLs of air placed in BAND, RADIAL COMPRESSION TR SHORT 24 24 CM. Affected 16:06:22 hand 96 % O2 saturation. 16:06:45 No case complications noted. 16:06:47 Cine recording checked. 16:06:59 A Left Heart Cath was performed. 16:08:54 HR=61 bpm, FYYL=647/76 mmhg, SpO2=97.0 %, Pain=0, Bob=10, Lau=2 16:11:44 Bedside Report will be given. 16:12:57 Vitals capture stopped. 16:13:28 Patient moved to [facility] End Study - Contrast Media Used In Study Contrast Total Opened (mL) Total Used (mL) Total Wasted (mL) Omnipaque 150 85 65 End Study - Maximum Contrast Load Max Contrast Load (mL) 453.7 End Study - Radiation Exposure Fluoro Time (minutes) 8.5 End Study - Patient Disposition Complications Transferred To Interventional Outcome No Telemetry Bed No attempt made
--- NOTE | 2018-03-19 18:49 | MA ---
cc: Preston Sheth MD DATE: 03/19/2018 PROCEDURE PERFORMED: Left heart catheterization, selective coronary angiography, left ventriculography, instant wave-free ratio (IFR) determination of the mid left circumflex. DESCRIPTION OF PROCEDURE: The patient was brought to the cardiac catheterization laboratory in a fasting state after having signed informed consent. The right radial region was prepped and draped as per policy and anesthetized with 1% lidocaine. Arterial access was obtained via the right radial artery and a 6 [place]ian sheath placed. Coronary arteriography was performed using a [place] catheter for the left coronary system and a Isac right 5.0 for the right coronary. Left ventriculography was done using a multipurpose catheter. Instant wave-free ratio (IFR) determination was done as described below. There were no apparent, immediate complications. A radial artery compression band was applied to the right wrist at the end of the case to achieve good hemostasis. HEMODYNAMIC DATA: Left ventricle 124 with an end diastolic pressure of 15. Aorta 143/58 with a mean of 98. There was no significant transvalvular aortic gradient on pullback of the pigtail catheter. CORONARY ARTERIOGRAPHY: The left main is normal. The left anterior descending is a medium size vessel with diffuse proximal disease resulting in up to 40% stenosis. The LAD gives rise to a small high diagonal which has up to 40% proximal stenosis. The left circumflex is a large dominant vessel with somewhat eccentric 50% mid stenosis and eccentric 40% disease distally. A medium size tortuous obtuse marginal arising from the mid left circumflex has 50% ostial stenosis. A number of posterolateral branches appear to be angiographically normal. A medium size ramus intermedius has up to 40% proximal stenosis. The right coronary artery is a small nondominant vessel with minimal luminal irregularities. LEFT VENTRICULOGRAPHY: Contrast injection of the left ventricle reveals no segmental wall motion abnormalities. Ejection fraction is estimated at 65%. INSTANT WAVE-FREE RATIO (IFR) MEASUREMENT: Because of the borderline nature of the mid left circumflex lesion, it was decided to perform IFR measurement of this area. Heparin 70 units/kg was administered. Using a 6 [place]ibian XB 3.5 guiding catheter, the ostium of the left main was reengaged. A Greendizer pressure wire was normalized and then advanced distal to the mid left circumflex disease where IFR measurement was 0.98. The pressure wire and guiding catheter were removed. There were no apparent, immediate complications. CONCLUSIONS: 1. Moderate 2-vessel coronary artery disease with no definite high-grade stenosis. 2. Status post instant wave-free ratio (IFR) determination of the left circumflex, confirming the absence of hemodynamically significant disease in this region. 3. Normal left ventricular function with an estimated ejection fraction of 65%. MD JOI Browne/christopher , 04:10 PM , 04:17 PM VERENICE
[2018-03-20 01:22] VITALS: BP 162/82; RESP 20; TEMP 98.8; O2SAT 99
[2018-03-20] MEDS: Sod Chloride 0.9% Inj 1,000 ML IV.CONT SCH ×2 (07:18→07:19)
[2018-03-20] MEDS: Heparin - SQ 10,000 UNITS/ML Vial SQ SCH (08:50)
[2018-03-20] MEDS: predniSONE 5 MG Tablet PO SCH (08:51)
[2018-03-20] MEDS: Metoprolol Tartrate 25 MG Tablet PO SCH (08:51)
--- NOTE | 2018-03-20 11:45 | P.PN ---
Subjective Interval history: Follow-up non-ST elevation SD/chest pain March 20, 2018-patient seen and examined, currently denies any chest pain or shortness of breath. Had a clean heart catheterization done yesterday. Physical Exam Vital signs: Vital Signs 03/19/18 16:20 03/20/18 02:34 03/20/18 07:00 Temperature 98.8 F Pulse Rate 78 68 Respiratory Rate 20 Blood Pressure 162/82 H Pulse Oximetry 96 99 Intake & Output 03/19/18 03/20/18 03/20/18 18:59 06:59 18:59 Intake Total 1005 / 1005 Balance 1005 / 1005 Intake: IV 1005 / 1005 Heparin/NS PF Inj 1,000 ML @ 0 5 / 5 mls/hr .ROUTE .STK-MED ONE Rx#: [id number] NS Inj 1,000 ML @ 100 mls/hr IV 1000 / 1000 .CONT .Q10H KI Rx#:[id number] Narrative: GENERAL: Well-nourished, well-developed middle-aged male patient in [facility]. SKIN: Warm and dry. No rash. HEENT: Normocephalic. Atraumatic. Mucous membranes pink and moist. NECK: Supple. Trachea midline. CARDIOVASCULAR: Regular rate and rhythm. No murmur appreciated. RESPIRATORY: No accessory muscle use. Clear to auscultation. Breath sounds equal bilaterally. GASTROINTESTINAL: Abdomen soft, non-tender, nondistended. Normoactive bowel sounds x4. MUSCULOSKELETAL: No obvious deformities. Extremities without clubbing, cyanosis , or edema. NEUROLOGICAL: Awake and alert. No obvious cranial nerve deficits. Motor grossly within normal limits. Moving all extremities spontaneously. Normal speech. PSYCHIATRIC: Appropriate mood and affect; insight and judgment normal. Results - Labs CBC & Chem 7: 03/16/18 11:54 03/16/18 11:54 - Procedures [facility] Assessment and Plan - Plan 57-year-old man with Chest pain: Initially admitted to the chest pain center, ACS ruled out with negative serial cardiac enzymes, however walking treadmill stress test abnormal , -Continue aspirin, BB, ARB, Nitro ointment, O2 prn, IV morphine prn -Monitor on telemetry -Cardiology consulted, s/p cardiac catheterization without any stent placed Hypertension: chronic -continue patient's losartan Rheumatoid Arthritis: chronic -continue patient's low dose prednisone 2.5mg daily -outpatient f/up Headache: Resolved -Tylenol as needed, patient states he can tolerate the nitro for now DVT Prophylaxis: heparin sq
--- NOTE | 2018-03-20 11:57 | P.DS ---
Date of admission: 03/16/18 15:59 Primary care physician: Seth Grigsby DO Anticipated date of discharge: 03/20/18 Brief History from admission: 57 year old male with history of RA and hypertension presents to ER for further evaluation pressure, dizziness, and nausea. Onset 11 AM. Location substernal characterizes pressure with associated dizziness and nausea. Denied vomiting, dyspnea, or diaphoresis. Dizziness improved after a few hours reporting chest pressure "never went away." Monday morning woke up feeling fine. While drinking coffee dizziness and nausea returned still noticing sternal chest pressure. Duration dizziness 2 hours. Describes "the world to be spinning." Decided to come the ER for further evaluation as he has a planned trip to [place] this evening. No known coronary artery disease, diabetes, or hyperlipidemia. No recent illness or injury. Continues to have mild chest pressure, dizziness has resolved. Lifelong non-smoker. Reports early onset cardiac disease in mother, "heart problems in her 30s," CABG in her 40s. Past cardiac testing 06/15/14 exercise cardiac testing, Jamie protocol ambulated 9 minutes, no evidence of ischemia. DS: Summary Hospital Course: While in the hospital, patient was treated for: Chest pain: Initially admitted to the chest pain center, ACS ruled out with negative serial cardiac enzymes, however walking treadmill stress test abnormal , -Treated with aspirin, BB, ARB, Nitro ointment, O2 prn, IV morphine prn -Monitor on telemetry -Cardiology consulted, s/p cardiac catheterization without any stent placed Hypertension: chronic -Treated with patient's losartan Rheumatoid Arthritis: chronic -continue patient's low dose prednisone 2.5mg daily -outpatient f/up Headache: Resolved -Tylenol as needed, patient states he can tolerate the nitro for now DVT Prophylaxis: heparin sq - Time Spent with Patient Total time spent providing and/or coordinating discharge services: Less than 30 minutes - Quality: VTE Deep Vein Thrombosis/Pulmonary Embolism Present on Admission: No Exam Vital signs: Vital Signs 03/19/18 16:20 03/20/18 02:34 03/20/18 07:00 Temperature 98.8 F Pulse Rate 78 68 Respiratory Rate 20 Blood Pressure 162/82 H Pulse Oximetry 96 99 Intake & Output 03/19/18 03/20/18 03/20/18 18:59 06:59 18:59 Intake Total 1005 / 1005 Balance 1005 / 1005 Intake: IV 1005 / 1005 Heparin/NS PF Inj 1,000 ML @ 0 5 / 5 mls/hr .ROUTE .STK-MED ONE Rx#: [id number] NS Inj 1,000 ML @ 100 mls/hr IV 1000 / 1000 .CONT .Q10H KI Rx#:[id number] Narrative: GENERAL: NAD SKIN: Warm and dry. HEAD: Atraumatic. Normocephalic. EYES: Pupils equal and round. No scleral icterus. No injection or drainage. ENT: No nasal bleeding or discharge. Mucous membranes pink and moist. NECK: Trachea midline. No JVD. CARDIOVASCULAR: Regular rate and rhythm. RESPIRATORY: No accessory muscle use. Clear to auscultation. Breath sounds equal bilaterally. GASTROINTESTINAL: Abdomen soft, non-tender, nondistended. Hepatic and splenic margins not palpable. MUSCULOSKELETAL: Extremities without clubbing, cyanosis, or edema. No obvious deformities. NEUROLOGICAL: Awake and alert. No obvious cranial nerve deficits. Motor grossly within normal limits. Five out of 5 muscle strength in the arms and legs. Normal speech. PSYCHIATRIC: Appropriate mood and affect; insight and judgment normal. Results Procedures completed during hospitalization: [facility] - Impressions ITS Impressions Chest X-Ray 03/16/18 11:40 CONCLUSION: No acute cardiopulmonary process. Chest CTA 03/16/18 16:47 CONCLUSION: 1. The study is negative for pulmonary embolism. Discharge Plan - Discharge Disposition Patient Disposition: 01 Discharge Home - Discharge Condition Condition: Stable - Discharge Order Discharge Orders: Discharge Order (Routine); Ordered 03/20/18 Ordered By: Jose A Weinstein Cardiology Clear for Discharge (Routine); Ordered 03/19/18 Ordered By: Preston Sheth - Discharge Details Anticipated Discharge Date: 03/20/18 - Physicians Team Primary Care Provider: Seth Grigsby Attending Provider: Jose A Weinstein Other Providers: Crow Gold MD ; Jose A Weinstein MD
[2018-03-20 12:15] VITALS: PULSE 63
== END 2018-03-20 12:18 | disposition home or self-care (01) ==
LOC: NEPE 11:16 → NEDA 11:16 → NEPFCDU 17:10 → HCIS 03-19 15:06
PROVIDERS: ADMIT Hospitalist; ATTEND Hospitalist